=== PATIENT | female | born 1995 | race Caucasian/White ===

== ENCOUNTER 2017-05-11 01:31 | Emergency (ER) | payer MEDICAID ==
[~2017-05-11] VITALS: Ht 160 cm; Wt 63.6 kg
[~2017-05-11 01:31] MED LIST: ESCI20TA PO; ESCI5TAB PO; GABA-534 PO; KEP500T PO; METH500T PO; PRED10TA PO; QUET-1 PO
[2017-05-11] MEDS ORDERED: LORazepam 2 mg/ml vial IV ONE (02:05)
[2017-05-11] MEDS ORDERED: morphine 5 MG/ML injection IV ONE (02:05)
[2017-05-11] MEDS ORDERED: normal saline 1000ML IV soln IVB ONE (02:05)
[2017-05-11] MEDS ORDERED: morphine 2 MG/ML inj. syringe IV ONE (02:20)
[2017-05-11 02:45] LABS: BASOPHILS # (AUTO) 0.1 X10'3 (0-0.2); BASOPHILS % (AUTO) 0.8 % (0-1); EOSINOPHILS # (AUTO) 0.2 X10'3 (0-0.9); EOSINOPHILS % (AUTO) 1.6 % (0-6); HEMOGLOBIN 13.5 g/dl (12.0-16.0); LYMPHOCYTES # (AUTO) 3.1 X10'3 (1.1-4.8); LYMPHOCYTES % (AUTO) 30.7 % (21-51); MEAN CORPUSCULAR HEMOGLOBIN 31.2 PG (27.0-31.0); MEAN CORPUSCULAR HGB CONC 33.6 % (33.0-36.5); MEAN CORPUSCULAR VOLUME 92.8 FL (78-98); MEAN PLATELET VOLUME 7.8 FL (7.4-10.4); MONOCYTES # (AUTO) 0.5 X10'3 (0-0.9); MONOCYTES % (AUTO) 4.9 % (2-12); NEUTROPHILS # (AUTO) 6.3 X10'3 (1.8-7.7); PLATELET COUNT 250 X10'3 (140-440); RED BLOOD COUNT 4.31 X10'6 (4.20-5.60); RED CELL DISTRIBUTION WIDTH 12.9 % (11.5-14.5); WHITE BLOOD COUNT 10.2 X10'3 (4.5-11.0)
[2017-05-11 02:54] LABS: ALANINE AMINOTRANSFERASE 30 U/L (12-78); ALBUMIN 3.4 G/DL (3.4-5.0); ALBUMIN/GLOBULIN RATIO 0.9 (1.1-1.5); ALKALINE PHOSPHATASE 106 IU/L (20-180); ANION GAP 14 (8-16); ASPARTATE AMINO TRANSFERASE 20 U/L (10-37); BILIRUBIN,TOTAL 0.2 MG/DL (0.1-1.0); BLOOD UREA NITROGEN 9 MG/DL (7-18); BUN/CREATININE RATIO 11.7 (6.6-38.0); CALCIUM 8.5 MG/DL (8.5-10.1); CHLORIDE 106 MMOL/L (99-107); CREATININE 0.77 MG/DL (0.40-0.90); GLUCOSE 94 MG/DL (70-104); POTASSIUM 3.6 MMOL/L (3.5-5.1); SODIUM 143 MMOL/L (135-145); TOTAL CARBON DIOXIDE 23.2 MMOL/L (24-32); eGFR > 90 ML/MIN
[2017-05-11 03:38] VITALS: BP 115/77
[2017-05-30] MEDS ORDERED: ESCI20TA38 PO (22:51)
[2017-05-30] MEDS ORDERED: ASEN5TAB SL (22:51)
[2017-05-30] MEDS ORDERED: ETHI1TAB28 PO (22:51)
[2017-05-30] MEDS ORDERED: GABA-534 PO (22:51)
[2017-05-30] MEDS ORDERED: ALPR-624 PO (22:51)
[2017-05-30] MEDS ORDERED: LEVE500T PO (22:51)
== END 2017-05-11 03:40 | disposition home or self-care (01) ==
LOC: ER 01:31
DX: G40.909 Epilepsy, unspecified, not intractable, without status epilepticus (principal); F41.9 Anxiety disorder, unspecified; F32.9 Major depressive disorder, single episode, unspecified; Z88.1 Allergy status to other antibiotic agents; Z88.8 Allergy status to other drugs, medicaments and biological substances
CPT/HCPCS: 36415; 71045; 80053; 85025; 96361; 96374; 96375; 99285; J2060; J2270; J7030

== ENCOUNTER 2017-06-24 11:30 | Emergency (ER) | payer MEDICAID ==
[~2017-06-24] VITALS: Ht 160 cm; Wt 61.3 kg
[~2017-06-24 11:30] MED LIST changes: +ALPR-624 PO; -ESCI20TA PO; +ESCI20TA38 PO; -ESCI5TAB PO; +ETHI1TAB28 PO; -KEP500T PO; +LEVE500T PO; -METH500T PO; -PRED10TA PO; -QUET-1 PO
[2017-06-24] MEDS ORDERED: levetiracetam inj 1,000 MG in normal saline 100ml IV soln 90 ML IV STA (12:00)
[2017-06-24] MEDS ORDERED: LORazepam 2 mg/ml vial IV ONE (12:00)
[2017-06-24] MEDS ORDERED: normal saline 1000ML IV soln IVB ONE (12:00)
[2017-06-24 12:23] LABS: BASOPHILS # (AUTO) 0.1 X10'3 (0-0.2); BASOPHILS % (AUTO) 0.7 % (0-1); EOSINOPHILS # (AUTO) 0.2 X10'3 (0-0.9); EOSINOPHILS % (AUTO) 2.3 % (0-6); HEMATOCRIT 42.9 % (35.0-45.0); HEMOGLOBIN 14.7 g/dl (12.0-16.0); LYMPHOCYTES # (AUTO) 2.5 X10'3 (1.1-4.8); LYMPHOCYTES % (AUTO) 30.1 % (21-51); MEAN CORPUSCULAR HEMOGLOBIN 31.1 PG (27.0-31.0); MEAN CORPUSCULAR HGB CONC 34.4 % (33.0-36.5); MEAN CORPUSCULAR VOLUME 90.5 FL (78-98); MEAN PLATELET VOLUME 7.9 FL (7.4-10.4); MONOCYTES # (AUTO) 0.4 X10'3 (0-0.9); MONOCYTES % (AUTO) 4.8 % (2-12); NEUTROPHILS # (AUTO) 5.1 X10'3 (1.8-7.7); NEUTROPHILS % (AUTO) 62.1 % (42-75); PLATELET COUNT 264 X10'3 (140-440); RED BLOOD COUNT 4.74 X10'6 (4.20-5.60); RED CELL DISTRIBUTION WIDTH 12.1 % (11.5-14.5); WHITE BLOOD COUNT 8.3 X10'3 (4.5-11.0)
[2017-06-24 12:32] LABS: PROTHROMBIN TIME 10.4 SECONDS (9.0-12.0)
[2017-06-24 12:38] LABS: ALANINE AMINOTRANSFERASE 26 U/L (12-78); ALBUMIN 3.6 G/DL (3.4-5.0); ALBUMIN/GLOBULIN RATIO 0.9 (1.1-1.5); ALKALINE PHOSPHATASE 89 IU/L (20-180); ANION GAP 10 (8-16); ASPARTATE AMINO TRANSFERASE 19 U/L (10-37); BILIRUBIN,TOTAL 0.2 MG/DL (0.1-1.0); BLOOD UREA NITROGEN 13 MG/DL (7-18); BUN/CREATININE RATIO 17.1 (6.6-38.0); CALCIUM 8.9 MG/DL (8.5-10.1); CHLORIDE 104 MMOL/L (99-107); CREATININE 0.76 MG/DL (0.40-0.90); GLUCOSE 89 MG/DL (70-104); POTASSIUM 4.5 MMOL/L (3.5-5.1); SODIUM 139 MMOL/L (135-145); TOTAL CARBON DIOXIDE 25.2 MMOL/L (24-32); TOTAL PROTEIN 7.7 G/DL (6.4-8.2); eGFR > 90 ML/MIN
[2017-06-24 16:32] VITALS: BP 111/62
== END 2017-06-24 16:36 | disposition home or self-care (01) ==
LOC: ER 11:31
DX: G40.909 Epilepsy, unspecified, not intractable, without status epilepticus (principal); Z88.0 Allergy status to penicillin; Z88.8 Allergy status to other drugs, medicaments and biological substances; Z79.899 Other long term (current) drug therapy; Z88.1 Allergy status to other antibiotic agents
CPT/HCPCS: 36415; 80053; 85025; 85610; 93005; 96361; 96365; 96375; 99285; J1953; J2060; J7030

== ENCOUNTER 2017-06-26 10:12 | Emergency (ER) | payer MEDICAID ==
[~2017-06-26] VITALS: Ht 162.6 cm; Wt 60.6 kg
[2017-06-26 10:26] VITALS: BP 140/88
== END 2017-06-26 10:28 | disposition home or self-care (01) ==
LOC: ER 10:12
DX: Z02.89 Encounter for other administrative examinations (principal); Z88.8 Allergy status to other drugs, medicaments and biological substances; Z79.899 Other long term (current) drug therapy
CPT/HCPCS: 99281

== ENCOUNTER 2017-08-23 02:33 | Emergency (ER) | payer MEDICAID ==
[~2017-08-23] VITALS: Ht 160 cm; Wt 59.5 kg
[2017-08-23 03:16] VITALS: BP 108/66
== END 2017-08-23 05:23 | disposition home or self-care (01) ==
LOC: ER 02:33
DX: R56.9 Unspecified convulsions (principal); Z88.1 Allergy status to other antibiotic agents; Z88.8 Allergy status to other drugs, medicaments and biological substances; Z79.899 Other long term (current) drug therapy
CPT/HCPCS: 99283

== ENCOUNTER 2017-09-04 11:57 | Emergency (ER) | payer MEDICAID ==
[~2017-09-04] VITALS: Ht 160 cm; Wt 130.0 kg
[2017-09-04 12:29] VITALS: BP 122/76
[2017-09-04] MEDS ORDERED: LORazepam 0.5 MG tablet PO PRN (12:35)
[2017-09-04 12:57] LABS: CLARITY,URINE SLIGHTLY CLOUDY (Clear); COLOR,URINE YELLOW (Yellow); GLUCOSE, URINE NEGATIVE (Neg); KETONES,URINE NEGATIVE (Neg); LEUKOCYTE ESTERASE ,URINE NEGATIVE (Neg); NITRITES, URINE NEGATIVE (Neg); OCCULT BLOOD,URINE NEGATIVE (Neg); PH,URINE 5.5 (4.8-8.0); PROTEIN,URINE NEGATIVE (Neg); UROBILINOGEN,URINE 0.2 E.U/dL (0.2-1.0)
[2017-09-04 12:58] LABS: UA COLLECTION TYPE CLN CATCH MIDSTREAM
[2017-09-04 12:59] LABS: URINE HCG NEGATIVE (NEG)
[2017-09-04 13:07] LABS: BACTERIA,URINE NONE SEEN /HPF (Neg); MUCUS STRANDS MODERATE /LPF (Neg); RBC,URINE NONE SEEN /HPF (0-2); SQUAMOUS EPITHELIAL CELL,UR FEW /LPF (FEW); WBC,URINE NONE SEEN /HPF (0-4)
[2017-09-04 13:11] LABS: BASOPHILS % (AUTO) 0.4 % (0-1); EOSINOPHILS # (AUTO) 0.1 X10'3 (0-0.9); EOSINOPHILS % (AUTO) 1.8 % (0-6); HEMATOCRIT 42.5 % (35.0-45.0); HEMOGLOBIN 14.7 g/dl (12.0-16.0); LYMPHOCYTES # (AUTO) 2.5 X10'3 (1.1-4.8); LYMPHOCYTES % (AUTO) 33.2 % (21-51); MEAN CORPUSCULAR HEMOGLOBIN 31.2 PG (27.0-31.0); MEAN CORPUSCULAR HGB CONC 34.6 % (33.0-36.5); MEAN PLATELET VOLUME 7.4 FL (7.4-10.4); MONOCYTES # (AUTO) 0.4 X10'3 (0-0.9); MONOCYTES % (AUTO) 5.1 % (2-12); NEUTROPHILS # (AUTO) 4.5 X10'3 (1.8-7.7); NEUTROPHILS % (AUTO) 59.5 % (42-75); PLATELET COUNT 285 X10'3 (140-440); RED BLOOD COUNT 4.72 X10'6 (4.20-5.60); RED CELL DISTRIBUTION WIDTH 12.8 % (11.5-14.5); WHITE BLOOD COUNT 7.6 X10'3 (4.5-11.0)
[2017-09-04 13:33] LABS: ALBUMIN 3.4 G/DL (3.4-5.0); ANION GAP 9 (8-16); BLOOD UREA NITROGEN 14 MG/DL (7-18); BUN/CREATININE RATIO 17.7 (6.6-38.0); CALCIUM 9.1 MG/DL (8.5-10.1); CHLORIDE 103 MMOL/L (99-107); CREATININE 0.79 MG/DL (0.40-0.90); GLUCOSE 90 MG/DL (70-104); POTASSIUM 4.3 MMOL/L (3.5-5.1); SODIUM 138 MMOL/L (135-145); eGFR > 90 ML/MIN
== END 2017-09-04 14:00 | disposition home or self-care (01) ==
LOC: ER 11:57
DX: F44.9 Dissociative and conversion disorder, unspecified (principal); F32.9 Major depressive disorder, single episode, unspecified; Z79.899 Other long term (current) drug therapy
CPT/HCPCS: 36415; 80048; 81001; 81025; 84443; 85025; 99284; A6449

== ENCOUNTER 2017-11-12 00:41 | Emergency (ER) | payer MEDICAID ==
[~2017-11-12] VITALS: Ht 160 cm; Wt 60.0 kg
[2017-11-12] MEDS ORDERED: normal saline 1000ML IV soln IVB ONE (00:50)
[2017-11-12] MEDS ORDERED: LORazepam 2 mg/ml vial IV ONE (00:50)
[2017-11-12 01:10] LABS: BASOPHILS # (AUTO) 0.1 X10'3 (0-0.2); BASOPHILS % (AUTO) 0.7 % (0-1); EOSINOPHILS # (AUTO) 0.2 X10'3 (0-0.9); EOSINOPHILS % (AUTO) 2.2 % (0-6); HEMATOCRIT 43.5 % (35.0-45.0); HEMOGLOBIN 14.2 g/dl (12.0-16.0); LYMPHOCYTES # (AUTO) 3.2 X10'3 (1.1-4.8); LYMPHOCYTES % (AUTO) 32.4 % (21-51); MEAN CORPUSCULAR HEMOGLOBIN 30.1 PG (27.0-31.0); MEAN CORPUSCULAR HGB CONC 32.6 % (33.0-36.5); MEAN CORPUSCULAR VOLUME 92.4 FL (78-98); MONOCYTES # (AUTO) 0.4 X10'3 (0-0.9); NEUTROPHILS # (AUTO) 5.8 X10'3 (1.8-7.7); NEUTROPHILS % (AUTO) 60.7 % (42-75); PLATELET COUNT 282 X10'3 (140-440); RED BLOOD COUNT 4.71 X10'6 (4.20-5.60); RED CELL DISTRIBUTION WIDTH 12.1 % (11.5-14.5); WHITE BLOOD COUNT 9.7 X10'3 (4.5-11.0)
[2017-11-12 01:19] LABS: ALANINE AMINOTRANSFERASE 22 U/L (12-78); ALBUMIN 3.2 G/DL (3.4-5.0); ALBUMIN/GLOBULIN RATIO 0.8 (1.1-1.5); ALKALINE PHOSPHATASE 81 IU/L (46-116); ANION GAP 11 (8-16); ASPARTATE AMINO TRANSFERASE 14 U/L (10-37); BILIRUBIN,TOTAL 0.1 MG/DL (0.1-1.0); BLOOD UREA NITROGEN 12 MG/DL (7-18); BUN/CREATININE RATIO 13.6 (6.6-38.0); CALCIUM 8.1 MG/DL (8.5-10.1); CHLORIDE 108 MMOL/L (99-107); CREATININE 0.88 MG/DL (0.40-0.90); GLUCOSE 91 MG/DL (70-104); POTASSIUM 3.6 MMOL/L (3.5-5.1); SODIUM 141 MMOL/L (135-145); TOTAL CARBON DIOXIDE 22.3 MMOL/L (24-32); TOTAL PROTEIN 7.2 G/DL (6.4-8.2); eGFR 81 ML/MIN
[2017-11-12 01:27] LABS: PHOSPHORUS 4.4 MG/DL (2.3-4.5)
[2017-11-12 03:44] VITALS: BP 123/78
== END 2017-11-12 03:45 | disposition home or self-care (01) ==
LOC: ER 00:42
DX: G40.909 Epilepsy, unspecified, not intractable, without status epilepticus (principal); Z88.1 Allergy status to other antibiotic agents; Z79.899 Other long term (current) drug therapy
CPT/HCPCS: 36415; 71045; 80053; 83735; 84100; 84443; 85025; 96374; 99285; J2060; J7030

== ENCOUNTER 2017-12-15 04:20 | Emergency (ER) | payer MEDICAID ==
[~2017-12-15] VITALS: Ht 157.5 cm; Wt 59.1 kg
[2017-12-15] MEDS ORDERED: metoclopramide 5 mg/ml inj IV ONE ×2 (04:25→04:35)
[2017-12-15] MEDS ORDERED: normal saline 1000ML IV soln IVB ONE (04:25)
[2017-12-15] MEDS ORDERED: diphenhydrAMINE 50 mg/ml inj IV ONE ×2 (04:25→04:35)
[2017-12-15 08:14] VITALS: BP 117/68
== END 2017-12-15 08:16 | disposition home or self-care (01) ==
LOC: ER 04:21
DX: R56.9 Unspecified convulsions (principal); F10.129 Alcohol abuse with intoxication, unspecified; R11.2 Nausea with vomiting, unspecified; F17.210 Nicotine dependence, cigarettes, uncomplicated; Z88.0 Allergy status to penicillin; Z88.1 Allergy status to other antibiotic agents; Z88.2 Allergy status to sulfonamides; Z79.899 Other long term (current) drug therapy; Y90.9 Presence of alcohol in blood, level not specified
CPT/HCPCS: 96361; 96374; 96375; 99284; J1200; J2765; J7030